=== PATIENT | male | born 1945 | race Caucasian/White ===

== ENCOUNTER 2018-03-20 05:44 | Inpatient (IN) | payer MEDICARE, BC | END 2018-03-21 11:25 | disposition home or self-care (01) | LOC: PAS IN 05:44 → ORTHO 4S 12:15 | DX: M19.011 Primary osteoarthritis, right shoulder (principal); M25.511 Pain in right shoulder ==

== ENCOUNTER 2021-08-15 07:58 | Day surgery (SDC) | payer MEDICARE, BC ==
[2021-08-09 13:53] LABS: BASOPHILS # (AUTO) 0.1 X10'3 (0-0.2); MEAN CORPUSCULAR HEMOGLOBIN 31.4 PG (27.0-31.0); MONOCYTES # (AUTO) 0.4 X10'3 (0-0.9); WHITE BLOOD COUNT 4.3 X10'3 (4.5-11.0)
[2021-08-09 13:56] LABS: BASOPHILS % (AUTO) 1.4 % (0-1); EOSINOPHILS # (AUTO) 0.4 X10'3 (0-0.9); HEMATOCRIT 36.1 % (42.0-52.0); HEMOGLOBIN 12.2 g/dl (14.0-17.9); LYMPHOCYTES # (AUTO) 0.5 X10'3 (1.1-4.8); LYMPHOCYTES % (AUTO) 10.5 % (21-51); MEAN CORPUSCULAR HGB CONC 33.8 g/dL (33.0-36.5); MEAN CORPUSCULAR VOLUME 92.9 FL (78-98); MEAN PLATELET VOLUME 8.2 FL (7.4-10.4); MONOCYTES % (AUTO) 8.7 % (2-12); NEUTROPHILS % (AUTO) 69.4 % (42-75); PLATELET COUNT 180 X10'3 (140-440); RED BLOOD COUNT 3.89 X10'6 (4.70-6.10); RED CELL DISTRIBUTION WIDTH 14.3 % (11.5-14.5)
[2021-08-09 14:08] LABS: APTT 24 SECONDS (22-32)
[2021-08-09 14:10] LABS: ALANINE AMINOTRANSFERASE 28 U/L (12-78); ALBUMIN 3.4 G/DL (3.4-5.0); ALBUMIN/GLOBULIN RATIO 1.1 (1.1-1.5); ALKALINE PHOSPHATASE 40 IU/L (46-116); ANION GAP 4 (8-16); ASPARTATE AMINO TRANSFERASE 22 U/L (10-37); BILIRUBIN,TOTAL 0.2 MG/DL (0.1-1.0); BLOOD UREA NITROGEN 19 MG/DL (7-18); BUN/CREATININE RATIO 22.1 (5.4-32.0); CALCIUM 8.9 MG/DL (8.5-10.1); CHLORIDE 108 MMOL/L (99-107); CREATININE 0.86 MG/DL (0.60-1.10); GLUCOSE 94 MG/DL (70-104); POTASSIUM 3.9 MMOL/L (3.5-5.1); SODIUM 141 MMOL/L (135-145); TOTAL PROTEIN 6.5 G/DL (6.4-8.2); eGFR 87 ML/MIN
[2021-08-15] VITALS (11 sets, daily range): BP systolic 100–135; BP diastolic 60–83
[~2021-08-15] VITALS: Ht 177.8 cm; Wt 103.6 kg
[~2021-08-15 07:58] MED LIST: ASPI-1264 PO; GLUC-131 PO; LACT1CAP65 PO; MELA3TAB39 PO; OMEG1CAP46 PO; ROSU20TA2 PO; UBID1CAP54 PO; [UNRECOGNIZED DRUG - CODE] PO
[2021-08-15] MEDS ORDERED: diphenhydrAMINE 25mg capsule PO PRN (08:25)
[2021-08-15] MEDS ORDERED: normal saline 1,000 ML IV SCH (08:25)
[2021-08-15] MEDS ORDERED: LORazepam 0.5 MG tablet PO PRN (08:25)
[2021-08-15] MEDS ORDERED: nitroGLYCERIN 0.4mg SUBLingual tab SL PRN (08:30)
[2021-08-15] MEDS ORDERED: CHOL20004 PO (08:35)
[2021-08-15] MEDS ORDERED: METO-395 PO (08:35)
[2021-08-15] MEDS ORDERED: LEUP3.753 IM (08:35)
[2021-08-15] MEDS ORDERED: CYAN250010 PO (08:35)
[2021-08-15] MEDS ORDERED: calcium PO (08:35)
[2021-08-15] MEDS ORDERED: iohexol 350MG/ML 100ml bottle IV ONE (11:14)
[2021-08-15] MEDS ORDERED: fentaNYL/PF 50MCG/1 ML 2ML syringe ONE (11:14)
[2021-08-15] MEDS ORDERED: midazolam 1 mg/ML 2ml injection ONE (11:14)
[2021-08-15] MEDS ORDERED: ondansetron/PF 4mg/2ml inj IV PRN (12:30)
[2021-08-15] MEDS ORDERED: OXAZEpam 15mg capsule PO PRN (12:30)
[2021-08-15] MEDS ORDERED: HYDROcodone/acetaminophen 10/325mg tab PO PRN (12:30)
[2021-08-15] MEDS ORDERED: proCHLORperazine 10 MG/2 ml inj IV PRN (12:30)
[2021-08-15] MEDS ORDERED: HYDROcodone/acetaminophen 5mg/325mg tablet PO PRN (12:30)
== END 2021-08-15 17:30 | disposition home or self-care (01) ==
LOC: SSTAY O 07:58
PROVIDERS: ATTEND Internal Medicine Cardiovascular Disease
DX: R94.39 Abnormal result of other cardiovascular function study (principal); R07.89 Other chest pain; I25.10 Atherosclerotic heart disease of native coronary artery without angina pectoris; I10 Essential (primary) hypertension; E78.5 Hyperlipidemia, unspecified; Z87.891 Personal history of nicotine dependence; Z79.899 Other long term (current) drug therapy; Z96.611 Presence of right artificial shoulder joint; Z96.612 Presence of left artificial shoulder joint
CPT/HCPCS: 36415; 71046; 80053; 85025; 85610; 85730; 93005; 93458; 99152; C1760; C1769; J1644; J2250; J3010; J7030; Q0163; Q9967; 99153; A4620; A6258